=== PATIENT | female | born 1950 | race African-American/Black ===

== ENCOUNTER → 2019-06-14 | Outpatient (CLI) | payer OTHER ==
[~2019-06-14] MED LIST: ACETAMINOPHEN 325 MG TABLET. PO PRN; diphenhydrAMINE HCL 25 MG CAPSULE PO PRN
[2019-06-14 08:32] LABS: BASO # 0.1 x10^3/uL (0.0-0.2); BASO % 1 % (0-3); EOS # 0.2 x10^3/uL (0.0-0.7); EOS % 1 % (0-3); LYMPH # 1.2 x10^3/uL (1.0-4.8); LYMPH % 9 % (24-48); MEAN CORPUSCULAR HEMOGLOBIN 33 pg (25-35); MEAN CORPUSCULAR HGB CONC 33 g/dL (31-37); MEAN CORPUSCULAR VOLUME 98 fL (79-100); MONO # 0.8 x10^3/uL (0.0-1.1); MONO % 6 % (0-9); NEUT # 11.4 x10^3/uL (1.8-7.7); NEUT % 84 % (31-73); PLATELET COUNT 438 x10^3/uL (140-400); RED BLOOD COUNT 2.05 x10^6/uL (3.50-5.40); RED CELL DISTRIBUTION WIDTH 20.2 % (11.5-14.5); WHITE BLOOD COUNT 13.6 x10^3/uL (4.0-11.0)
[2019-06-14 08:34] LABS: HEMATOCRIT 20.1 % (36.0-47.0); HEMOGLOBIN 6.7 g/dL (12.0-15.5)
[2019-06-14 09:11] LABS: ANISOCYTOSIS MOD; PLT ESTIMATE INCREASED (ADEQUATE)
[2019-06-14 09:36] VITALS: BP 119/87
[2019-06-14 09:52] VITALS: BP 127/58
[2019-06-14 10:51] VITALS: BP 136/61
[2019-06-14 11:17] VITALS: BP 139/59
== END | disposition home or self-care (01) ==
LOC: OPS 07:51
PROVIDERS: ATTEND Internal Medicine Hematology & Oncology
DX: D64.9 Anemia, unspecified (principal)
CPT/HCPCS: 36415; 36430; 85025; 86850; 86900; 86901; 86920; P9016; Q0163